=== PATIENT | male | born 1950 | race Caucasian/White ===

== ENCOUNTER 2020-06-26 13:30 | Inpatient (IN) | payer BC, OTHER ==
[~2020-06-26] VITALS: Ht 185.4 cm; Wt 87.0 kg
[2020-06-26 14:34] LABS: BASOPHILS % (AUTO) 0.5 % (0.0-5.0); EOSINOPHILS % (AUTO) 1.8 % (0.0-8.0); HEMATOCRIT 46.4 % (42-54); LYMPHOCYTES % (AUTO) 31.9 % (21.0-51.0); MEAN CORPUSCULAR HEMOGLOBIN 29.1 pg (27.0-33.0); MEAN CORPUSCULAR HGB CONC 33.6 g/dL (32.0-36.0); MEAN CORPUSCULAR VOLUME 86.6 fL (79-99); MONOCYTES % (AUTO) 8.9 % (3.0-13.0); NEUTROPHILS % (AUTO) 56.8 % (40.0-77.0); PLATELET COUNT (AUTO) 138 K/uL (130-400); RED BLOOD CELL COUNT(AUTO) 5.36 MIL/uL (4.50-6.20); WHITE BLOOD COUNT (AUTO) 7.9 K/uL (4.8-10.8)
[2020-06-26 14:49] LABS: HEMOGLOBIN A1C 7.3 % (4.0-6.0)
[2020-06-26 14:57] LABS: ALBUMIN 4.3 g/dL (3.5-5.0); B-TYPE NATRIURETIC PEPTIDE 15 pg/mL (0-100); BILIRUBIN,TOTAL 0.5 mg/dL (0.2-1.0); CREATININE 1.3 mg/dL (0.5-1.5); POTASSIUM 4.8 mmol/L (3.5-5.1); TOTAL PROTEIN, SERUM 8.2 g/dL (6.0-8.3)
[2020-06-26 14:58] LABS: INR 0.96 (0.85-1.15); PARTIAL THROMBOPLASTIN TIME 24.8 SEC (26.3-35.5); PROTHROMBIN TIME 10.4 SEC (9.6-11.6)
[2020-06-26 16:05] VITALS: BP 118/57
[2020-06-27] MEDS ORDERED: EMPA25TA PO (17:03)
[2020-06-27] MEDS ORDERED: METF-444 PO (17:03)
[2020-06-27] MEDS ORDERED: SERT100T12 PO (17:03)
[2020-06-27] MEDS ORDERED: METO-391 PO (17:03)
[2020-06-27] MEDS ORDERED: ASPI-1197 PO (17:03)
[2020-06-27] MEDS ORDERED: LEVO25TA9 PO (17:03)
[2020-06-27] MEDS ORDERED: ROSU20TA31 PO (17:03)
[2020-06-27] MEDS ORDERED: LOSA50TA64 PO (17:03)
[2020-06-27] MEDS ORDERED: GLIM4TAB36 PO (17:03)
[2020-06-27] MEDS ORDERED: PANT40GR PO (17:03)
[2020-06-28] VITALS (36 sets, daily range): BP systolic 76–157; BP diastolic 43–100
[2020-06-28] MEDS ORDERED: AMINOCAPROIC ACID 15,000 MG in SODIUM CHLORIDE 0.9% 500ML 420 ML IV PRN (06:15)
[2020-06-28] MEDS ORDERED: EPINEPHRINE 10 MG in SODIUM CHLORIDE 0.9% 240 ML IV PRN (06:15)
[2020-06-28] MEDS ORDERED: NOREPINEPHRINE BITARTRATE 8 MG in DEXTROSE 5%-WATER 250 ML IV PRN (06:15)
[2020-06-28] MEDS ORDERED: CLINDAMYCIN PHOSPHATE 150 MG/ML 6ML VIAL ONE (07:15)
[2020-06-28] MEDS ORDERED: PAPAVERINE HCL 30 MG/ML 2ML VIAL ONE (07:15)
[2020-06-28] MEDS ORDERED: SODIUM CHLORIDE 0.9% 1000ML 1,000 ML IV ONE (07:32)
[2020-06-28] MEDS ORDERED: NITROGLYCERIN 50 MG/D5% WATER 1 BOT ONE (07:42)
[2020-06-28] MEDS ORDERED: EPINEPHRINE 1 MG/ML AMPULE ONE (07:44)
[2020-06-28] MEDS ORDERED: NOREPINEPHRINE BITARTRATE 1 MG/1 ML ML IV ONE ×2 (07:44→10:10)
[2020-06-28] MEDS ORDERED: AMINOCAPROIC ACID 250 MG/ML 20 ML VIAL ONE (07:44)
[2020-06-28] MEDS ORDERED: LIDOCAINE PF 2% 5ML ABBOJECT ONE (07:44)
[2020-06-28] MEDS ORDERED: ESMOLOL HCL 10 MG/ML 10 ML VIAL ONE (07:44)
[2020-06-28] MEDS ORDERED: PROTAMINE SULFATE 10 MG/ML 25ML VIAL IV ONE (07:44)
[2020-06-28] MEDS ORDERED: HEPARIN SODIUM 1000UNIT/ML 10ML VIAL ONE ×2 (07:44→09:56)
[2020-06-28] MEDS ORDERED: PROPOFOL 10 MG/ML 20ML VIAL IV ONE (07:45)
[2020-06-28] MEDS ORDERED: FENTANYL CITRATE PF 50 MCG/1 ML 20ML VIAL IJ ONE (07:45)
[2020-06-28] MEDS ORDERED: MIDAZOLAM HCL 1 MG/ML 2ML VIAL ONE (07:46)
[2020-06-28] MEDS ORDERED: KETAMINE 50MG/ML SYRINGE 50 MG/ML DISP.SYRIN IV ONE (07:47)
[2020-06-28] MEDS ORDERED: ROCURONIUM BROMIDE 10MG/1ML 5ML VL ONE (07:50)
[2020-06-28] MEDS ORDERED: CLINDAMYCIN 900 MG/D5% WATER 50 ML IV ONE (07:56)
[2020-06-28] MEDS ORDERED: DELNIDO FORMULA 1 BAG IV ONE (07:59)
[2020-06-28] MEDS ORDERED: CEFAZOLIN SODIUM 1 GM VIAL IVP ONE (08:00)
[2020-06-28 09:11] LABS: ABG BASE EXCESS -6.4 mmol/L (-2.0-3.0); ABG HCO3 21.3 mmol/L (21.0-28.0); ABG OXYGEN SATURATION 98.9 % (95.0-99.0); ABG PCO2 50 mmHg (35-48)
[2020-06-28 09:54] LABS: ABG BASE EXCESS -6.4 mmol/L (-2.0-3.0); ABG HCO3 20.9 mmol/L (21.0-28.0); ABG OXYGEN SATURATION 99.1 % (95.0-99.0); ABG PCO2 48 mmHg (35-48)
[2020-06-28] MEDS ORDERED: SODIUM BICARB 50MEQ 50ML VIAL 100 ML ONE (10:08)
[2020-06-28 10:34] LABS: ABG HCO3 21.1 mmol/L (21.0-28.0); ABG OXYGEN SATURATION 98.3 % (95.0-99.0); ABG PCO2 39 mmHg (35-48)
[2020-06-28 11:11] LABS: ABG BASE EXCESS -3.3 mmol/L (-2.0-3.0); ABG HCO3 21.8 mmol/L (21.0-28.0); ABG PCO2 40 mmHg (35-48)
[2020-06-28] MEDS ORDERED: MORPHINE SULFATE 2 MG/ML 1ML SYG IV PRN (11:15)
[2020-06-28] MEDS ORDERED: POTASSIUM PHOS 15 mMOL+NS250ML 250 ML IV PRN (11:15)
[2020-06-28] MEDS ORDERED: ACETAMINOPHEN 650 MG SUPPOSITORY RC PRN (11:15)
[2020-06-28] MEDS ORDERED: AMINOCAPROIC ACID 15,000 MG in SODIUM CHLORIDE 0.9% 250 ML IV SCH (11:15)
[2020-06-28] MEDS ORDERED: ONDANSETRON HCL 4 MG/2 ML VIAL IV PRN (11:15)
[2020-06-28] MEDS ORDERED: NOREPINEPHRINE 4MG/NS 250ML 250 ML IV PRN (11:15)
[2020-06-28] MEDS ORDERED: MAGNESIUM 2GM PREMIX 50ML 50 ML IV PRN (11:15)
[2020-06-28] MEDS ORDERED: GLUCAGON 1MG KIT 1 MG ML IM PRN (11:15)
[2020-06-28] MEDS ORDERED: DEXTROSE 50%-WATER 50 ML DISP.SYRIN IV PRN (11:15)
[2020-06-28] MEDS ORDERED: ALBUMIN (HUMAN) 5% 250 ML IV PRN (11:15)
[2020-06-28] MEDS ORDERED: SODIUM BICARB 50MEQ 50ML VIAL IV PRN (11:15)
[2020-06-28] MEDS ORDERED: PROPOFOL 1000 MG/100 ML 100 ML IV PRN (11:15)
[2020-06-28] MEDS ORDERED: EPINEPHRINE 2 MG in DEXTROSE 5%-WATER 250 ML IV PRN (11:15)
[2020-06-28] MEDS ORDERED: SODIUM CHLORIDE 0.9% 500ML 500 ML IV SCH (11:15)
[2020-06-28] MEDS ORDERED: SODIUM CHLORIDE 0.9% 1000ML 1,000 ML IV SCH (11:15)
[2020-06-28] MEDS ORDERED: SODIUM CHLORIDE 0.9% 10 ML VIAL IVP PRN (11:15)
[2020-06-28] MEDS ORDERED: MORPHINE SULFATE 4 MG/1ML SYG IV PRN (11:15)
[2020-06-28] MEDS ORDERED: NITROGLYCERIN 50 MG/D5% WATER 250 BOT IV SCH (11:15)
[2020-06-28] MEDS ORDERED: AMIODARONE HCL 50 MG/ML 3 ML VIAL ONE (11:22)
[2020-06-28 11:53] LABS: ABG BASE EXCESS -4.3 mmol/L (-2.0-3.0); ABG OXYGEN SATURATION 98.2 % (95.0-99.0); ABG PCO2 46 mmHg (35-48)
--- NOTE | 2020-06-28 12:19 | NUR ---
POST OP Received pt immediately post op. Intubated/sedated. Not responsive to stimulation. SR on tele with strong apical heart tones. Vent settings as recorded. Received pt on IV levophed @ 10cmg/min, epinephrine gtt @ 0.03mcg/kg/min, amicar @50ml/hr. Insulin gtt initiated per protocol. Right IJ CV line in use. Left radial arterial line patent with acceptable waveform. CT's x2 patent. Epicardial wires taped securely to chest wall. Sternal drsg is clean and dry. RICHA bandages/surgical drsgs to BLE's clean and dry. Assessment completed/recorded.
--- NOTE | 2020-06-28 12:44 | NUR ---
NOTIFICATION Spoke to by phone - aware of pt status/location.
--- NOTE | 2020-06-28 12:47 | NUR ---
DR.KOTTA Paez's office contacted - voice message left on answering machine regarding pt's admission/location. Pending return call.
[2020-06-28 12:54] LABS: HEMATOCRIT 35.8 % (42-54); MEAN CORPUSCULAR HEMOGLOBIN 29.3 pg (27.0-33.0); MEAN CORPUSCULAR HGB CONC 33.5 g/dL (32.0-36.0); MEAN CORPUSCULAR VOLUME 87.3 fL (79-99); RED BLOOD CELL COUNT(AUTO) 4.1 MIL/uL (4.50-6.20); WHITE BLOOD COUNT (AUTO) 20.9 K/uL (4.8-10.8)
[2020-06-28 13:07] LABS: CREATININE 1.2 mg/dL (0.5-1.5); INR 1.16 (0.85-1.15); MAGNESIUM 2.8 mg/dL (1.80-2.40); PARTIAL THROMBOPLASTIN TIME 23.1 SEC (26.3-35.5); PHOSPHORUS 6.1 mg/dL (2.5-4.9); POTASSIUM 4.9 mmol/L (3.5-5.1); PROTHROMBIN TIME 12.5 SEC (9.6-11.6)
--- NOTE | 2020-06-28 13:19 | NUR ---
FAMILY UPDATE Pt's spouse in to see pt briefly - updated. Discussed routine post op plan of care. Questions addressed. ICU phone number provided.
--- NOTE | 2020-06-28 13:41 | NUR ---
MD VISIT in to see pt - briefly updated.
[2020-06-28 13:45] LABS: ABG BASE EXCESS -1.9 mmol/L (-2.0-3.0); ABG HCO3 25.7 mmol/L (21.0-28.0); ABG OXYGEN SATURATION 96.6 % (95.0-99.0); ABG PCO2 55 mmHg (35-48)
[2020-06-28] MEDS: INSULIN REGULAR, HUMAN 3ML 100 UNIT in SODIUM CHLORIDE 0.9% 99 ML IV SCH ×2 (14:05)
--- NOTE | 2020-06-28 14:54 | NUR ---
STATUS Spontaneous eye opening - focuses on caregiver but not yet following commands. Attempts made to reorient/reassure pt. Pt does not maintain adequate level of arousal.
--- NOTE | 2020-06-28 15:09 | NUR ---
STATUS Spontaneous eye opening. Focuses and follows commands. Reoriented and reassured. Pt is in no acute distress. Equal movement x4 extremities.
[2020-06-28] MEDS ORDERED: ALBUMIN (HUMAN) 5% 250 ML IV ONE ×3 (15:35→19:31)
--- NOTE | 2020-06-28 15:38 | NUR ---
PT CARE 5% albumin 250ml administered for hemodynamic support.
[2020-06-28] MEDS ORDERED: ALBUMIN (HUMAN) 5% 250 ML IV SCH (16:30)
--- NOTE | 2020-06-28 16:43 | NUR ---
STATUS Drowsy but arousable. Is in no acute distress. Does not maintain adequate level of arousal. Pt reassured.
[2020-06-28 17:31] LABS: ABG BASE EXCESS 0.3 mmol/L (-2.0-3.0); ABG HCO3 25.5 mmol/L (21.0-28.0); ABG OXYGEN SATURATION 96.4 % (95.0-99.0); ABG PCO2 44 mmHg (35-48)
[2020-06-28] MEDS: POTASSIUM CHLORIDE 20MEQ/100ML 100 ML IV PRN ×2 (17:35→20:49)
[2020-06-28] MEDS ORDERED: PHARMACY COMMUNICATION MISC SCH ×4 (18:15→21:00)
[2020-06-28] MEDS ORDERED: MANNITOL 25% 50ML VIAL IV ONE (18:40)
[2020-06-28] MEDS ORDERED: CALCIUM CHLORIDE 100 MG/ML 10 ML SYG IVP ONE (18:40)
[2020-06-28] MEDS ORDERED: HEPARIN SODIUM 1000UNIT/ML 10ML VIAL IV ONE (18:40)
[2020-06-28] MEDS ORDERED: SODIUM BICARB 8.4% 50ML SYRINGE IVP ONE (18:40)
[2020-06-28] MEDS ORDERED: MAGNESIUM SULFATE 1 GM/2 ML VIAL IM ONE (18:40)
[2020-06-28] MEDS ORDERED: AMINOCAPROIC ACID 250 MG/ML 20 ML VIAL IV ONE (18:40)
[2020-06-28] MEDS ORDERED: PHENYLEPHRINE HCL 10 MG/ML 1ML VIAL IV ONE (18:40)
[2020-06-28] MEDS ORDERED: ALBUMIN (HUMAN) 25% 50 ML IV ONE (18:40)
--- NOTE | 2020-06-28 18:59 | NUR ---
EXTUBATION Extubated to 40% aerosol mask. Care of pt endorsed to 7P RN.
[2020-06-28] MEDS: CLINDAMYCIN 900 MG/D5% WATER 50 ML IV SCH (19:03)
[2020-06-28] MEDS ORDERED: EPINEPHRINE 10 MG in DEXTROSE 5%-WATER 250 ML IV PRN (19:30)
[2020-06-28] MEDS ORDERED: NOREPINEPHRINE BITARTRATE 8 MG in SODIUM CHLORIDE 0.9% 250 ML IV PRN (19:30)
[2020-06-28] MEDS: CALCIUM GLUCONATE 1 GM in SODIUM CHLORIDE 0.9% 50 ML IV PRN ×2 (20:13→21:58)
[2020-06-28 20:22] LABS: ABG BASE EXCESS 1.7 mmol/L (-2.0-3.0); ABG OXYGEN SATURATION 95.6 % (95.0-99.0); ABG PCO2 45 mmHg (35-48)
[2020-06-28] MEDS: ACETAMINOPHEN 325 MG TAB PO PRN (20:46)
[2020-06-28] MEDS ORDERED: FAMOTIDINE/PF 20 MG/2 ML VIAL IV SCH (21:00)
[2020-06-29] VITALS (26 sets, daily range): BP systolic 99–149; BP diastolic 42–66
[2020-06-29] MEDS: ACETAMINOPHEN 325 MG TAB PO PRN ×2 (01:02→20:21)
[2020-06-29] MEDS: CLINDAMYCIN 900 MG/D5% WATER 50 ML IV SCH ×2 (03:08→12:31)
[2020-06-29] MEDS: TRAMADOL HCL 50 MG TABLET PO PRN ×3 (03:19→16:58)
[2020-06-29 04:35] LABS: HEMATOCRIT 29.1 % (42-54); MEAN CORPUSCULAR HEMOGLOBIN 29.3 pg (27.0-33.0); MEAN CORPUSCULAR HGB CONC 33.7 g/dL (32.0-36.0); MEAN CORPUSCULAR VOLUME 87.1 fL (79-99); RED BLOOD CELL COUNT(AUTO) 3.34 MIL/uL (4.50-6.20); RED CELL DISTRIBUTION WIDTH 13.5 % (11.0-15.5)
[2020-06-29 04:48] LABS: CREATININE 1.2 mg/dL (0.5-1.5); INR 1.05 (0.85-1.15); PARTIAL THROMBOPLASTIN TIME 22.6 SEC (26.3-35.5); PHOSPHORUS 3.4 mg/dL (2.5-4.9); POTASSIUM 3.7 mmol/L (3.5-5.1); PROTHROMBIN TIME 11.3 SEC (9.6-11.6)
[2020-06-29] MEDS: POTASSIUM CHLORIDE 20MEQ/100ML 100 ML IV PRN (05:20)
[2020-06-29] MEDS: CALCIUM GLUCONATE 1 GM in SODIUM CHLORIDE 0.9% 50 ML IV PRN (05:29)
[2020-06-29] MEDS: INSULIN REGULAR, HUMAN 3ML 100 UNIT in SODIUM CHLORIDE 0.9% 99 ML IV SCH ×2 (08:29)
[2020-06-29] MEDS: FAMOTIDINE 20MG TAB 20 MG TAB PO SCH ×2 (10:52→20:20)
--- NOTE | 2020-06-29 14:49 | NUR ---
DC PLAN PATIENT ON 4L TEMP 100.9 CM WILL CONTINUE TO FOLLOW. Addendum: 06/29/20 at 1450 by JEREMY HUGHES RN CM Amended: Links added.
[2020-06-29] MEDS: ATORVASTATIN CALCIUM 40 MG TABLET PO SCH (20:21)
[2020-06-29] MEDS: FUROSEMIDE 20 MG TABLET PO SCH (20:21)
[2020-06-30] VITALS (24 sets, daily range): BP systolic 107–189; BP diastolic 42–90
[2020-06-30] MEDS: TRAMADOL HCL 50 MG TABLET PO PRN ×4 (00:03→18:38)
[2020-06-30] MEDS: ACETAMINOPHEN 325 MG TAB PO PRN (03:10)
[2020-06-30 04:32] LABS: HEMATOCRIT 23.2 % (42-54); MEAN CORPUSCULAR HEMOGLOBIN 29.6 pg (27.0-33.0); MEAN CORPUSCULAR HGB CONC 34.1 g/dL (32.0-36.0); MEAN CORPUSCULAR VOLUME 86.9 fL (79-99); RED BLOOD CELL COUNT(AUTO) 2.67 MIL/uL (4.50-6.20); RED CELL DISTRIBUTION WIDTH 13.5 % (11.0-15.5); WHITE BLOOD COUNT (AUTO) 11.1 K/uL (4.8-10.8)
[2020-06-30 04:53] LABS: POTASSIUM 3.3 mmol/L (3.5-5.1)
[2020-06-30] MEDS: FUROSEMIDE 20 MG TABLET PO SCH ×3 (04:57→20:15)
[2020-06-30] MEDS: POTASSIUM CHLORIDE 20MEQ/100ML 100 ML IV PRN ×2 (04:59→09:45)
[2020-06-30] MEDS: FAMOTIDINE 20MG TAB 20 MG TAB PO SCH ×2 (08:56→20:15)
[2020-06-30] MEDS ORDERED: ASPIRIN 81 MG EC TAB PO SCH (09:00)
[2020-06-30] MEDS: METOPROLOL TARTRATE 25 MG TAB PO SCH ×2 (09:01→20:15)
--- NOTE | 2020-06-30 12:14 | NUR ---
DC PLAN SPOKE TO PATIENT. PATIENT LIVES WITH SPOUSE. INDEPENDENT ABLE TO PERFORM ADL'S. PATIENT HAS NO SERVICES OR DME'S. NOT SURE IF WILL NEED PT REHAB. WILL WAIT FOR PT EVAL. Addendum: 06/30/20 at 1215 by JEREMY HUGHES RN CM Amended: Links added.
[2020-06-30] MEDS: ATORVASTATIN CALCIUM 40 MG TABLET PO SCH (20:15)
--- NOTE | 2020-06-30 23:30 | NUR ---
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 Pt kept on O2 at 2L/NC O2 sat at 92%. Pt encourage & did his IS, made aware at least do it every hour while awake, stated he will try. Re-explain the importance of IS to prevent complication. Reported FC was d/c earlier today & pt has been voiding adequately.
[2020-07-01] VITALS: BP 153/58
[2020-07-01 04:00] VITALS: BP 148/78
[2020-07-01] MEDS: FUROSEMIDE 20 MG TABLET PO SCH ×3 (06:00→20:09)
--- NOTE | 2020-07-01 06:24 | NUR ---
MD Rounds Dr. aHrris in, updated with pt's status, with orders carried out.
[2020-07-01] MEDS ORDERED: LACTULOSE 20 GM/30 ML UDCUP ONE (06:27)
[2020-07-01] MEDS ORDERED: POTASSIUM CHLORIDE 20MEQ/100ML 100 ML IV PRN (06:30)
[2020-07-01] MEDS ORDERED: LACTULOSE 20 GM/30 ML UDCUP PO PRN (06:30)
[2020-07-01] MEDS ORDERED: LIDOCAINE HCL-MPF 1% 2ML VIAL IV PRN (06:30)
[2020-07-01] MEDS: TRAMADOL HCL 50 MG TABLET PO PRN ×2 (06:35→10:33)
[2020-07-01 06:53] LABS: HEMATOCRIT 25.1 % (42-54); MEAN CORPUSCULAR HEMOGLOBIN 29.4 pg (27.0-33.0); MEAN CORPUSCULAR HGB CONC 33.1 g/dL (32.0-36.0); PLATELET COUNT (AUTO) 58 K/uL (130-400); RED BLOOD CELL COUNT(AUTO) 2.82 MIL/uL (4.50-6.20); RED CELL DISTRIBUTION WIDTH 13.4 % (11.0-15.5); WHITE BLOOD COUNT (AUTO) 11.2 K/uL (4.8-10.8)
--- NOTE | 2020-07-01 07:40 | NUR ---
ASSESSMENT ENCOUNTERED PT A&OX3, CALM COOPERATIVE AND DOES NOT APPEAR TO BE IN ANY DISTRESS NOR ANY NEURO DEFICITS PRESENT. PT DENIES PAIN, SOB, NAUSEA. STERNAL AND CHEST TUBE INCISION SITES DRY AND INTACT. INCENTIVE SPIROMETER AVERAGING 1500ML PER ATTEMPT. PT IS AMBULATORY, GAIT SLOW BUT STEADY WITH 1-2 PERSON ASSIST. CALL LIGHT WITHIN REACH.
[2020-07-01 08:09] VITALS: BP 144/71
[2020-07-01] MEDS: FAMOTIDINE 20MG TAB 20 MG TAB PO SCH ×2 (10:31→20:09)
[2020-07-01] MEDS: METOPROLOL TARTRATE 25 MG TAB PO SCH ×2 (10:34→20:09)
[2020-07-01] MEDS: POTASSIUM CHLORIDE 20 MEQ ERTAB PO PRN (11:48)
[2020-07-01] MEDS: POTASSIUM CHLORIDE 10% ELIXIR 20 MEQ/15 ML UDCUP PO PRN ×3 (11:50→15:51)
[2020-07-01 12:00] VITALS: BP 125/64
[2020-07-01] MEDS: INSULIN HUMULIN R 100 UNIT/ML 3ML SQ SCH ×3 (13:24→20:32)
[2020-07-01 16:12] VITALS: BP 129/83
[2020-07-01] MEDS: ATORVASTATIN CALCIUM 40 MG TABLET PO SCH (20:09)
[2020-07-01 20:40] VITALS: BP 146/66
[2020-07-02 00:07] VITALS: BP 145/75
[2020-07-02] MEDS: TRAMADOL HCL 50 MG TABLET PO PRN ×2 (01:12→07:10)
[2020-07-02 04:29] VITALS: BP 136/71
[2020-07-02] MEDS: FUROSEMIDE 20 MG TABLET PO SCH ×2 (05:05→16:24)
--- NOTE | 2020-07-02 05:21 | NUR ---
Rounds Dr. Harris in, spoke with the pt & gave order pt ok for d/c, to follow up with him in 2 weeks, d/c medications c/o attending on this case.
[2020-07-02] MEDS: INSULIN HUMULIN R 100 UNIT/ML 3ML SQ SCH ×2 (05:47→12:21)
[2020-07-02 05:48] LABS: HEMATOCRIT 26.1 % (42-54); MEAN CORPUSCULAR HEMOGLOBIN 29.6 pg (27.0-33.0); MEAN CORPUSCULAR HGB CONC 33.3 g/dL (32.0-36.0); MEAN CORPUSCULAR VOLUME 88.8 fL (79-99); NUCLEATED RED BLOOD CELLS 0.2 % (0.0-0.19); RED BLOOD CELL COUNT(AUTO) 2.94 MIL/uL (4.50-6.20); RED CELL DISTRIBUTION WIDTH 13.2 % (11.0-15.5); WHITE BLOOD COUNT (AUTO) 13.2 K/uL (4.8-10.8)
[2020-07-02 06:36] LABS: POTASSIUM 2.9 mmol/L (3.5-5.1)
[2020-07-02] MEDS: POTASSIUM CHLORIDE 20MEQ/100ML 100 ML IV PRN (07:07)
[2020-07-02] MEDS: POTASSIUM CHLORIDE 10% ELIXIR 20 MEQ/15 ML UDCUP PO PRN ×4 (07:09→16:18)
[2020-07-02 08:00] VITALS: BP 148/68
[2020-07-02] MEDS: METOPROLOL TARTRATE 25 MG TAB PO SCH (08:59)
[2020-07-02] MEDS: FAMOTIDINE 20MG TAB 20 MG TAB PO SCH (08:59)
[2020-07-02] MEDS: POTASSIUM CHLORIDE 20 MEQ ERTAB PO PRN (08:59)
[2020-07-02 11:00] VITALS: BP 119/58
[2020-07-02 16:00] VITALS: BP 139/76
== END 2020-07-02 18:41 | disposition home or self-care (01) | DRG 221 ==
LOC: EDSTATUS 13:30 → DAHIP 06-28 05:52 → 2CH 06-28 10:34 → 4DH 06-30 23:45
PROVIDERS: ADMIT Thoracic Surgery (Cardiothoracic Vascular Surgery); ATTEND Thoracic Surgery (Cardiothoracic Vascular Surgery)
PROC: 5A1221Z Performance of Cardiac Output, Continuous (ICD-10-PCS; 2020-06-28)
PROC: B24BZZ4 Ultrasonography of Heart with Aorta, Transesophageal (ICD-10-PCS; 2020-06-28)
PROC: 02100Z9 Bypass Coronary Artery, One Artery from Left Internal Mammary, Open Approach (ICD-10-PCS; principal; 2020-06-28 07:53)
PROC: 02RF08Z Replacement of Aortic Valve with Zooplastic Tissue, Open Approach (ICD-10-PCS; 2020-06-28 07:53)
PROC: 021109W Bypass Coronary Artery, Two Arteries from Aorta with Autologous Venous Tissue, Open Approach (ICD-10-PCS; 2020-06-28 07:53)
PROC: 06BQ4ZZ Excision of Left Saphenous Vein, Percutaneous Endoscopic Approach (ICD-10-PCS; 2020-06-28 07:53)
DX: I25.110 Atherosclerotic heart disease of native coronary artery with unstable angina pectoris (principal); I35.2 Nonrheumatic aortic (valve) stenosis with insufficiency; J44.9 Chronic obstructive pulmonary disease, unspecified; D64.9 Anemia, unspecified; D69.6 Thrombocytopenia, unspecified; E11.9 Type 2 diabetes mellitus without complications; E78.00 Pure hypercholesterolemia, unspecified; E87.70 Fluid overload, unspecified; I10 Essential (primary) hypertension; Z79.899 Other long term (current) drug therapy; Z20.828 Contact with and (suspected) exposure to other viral communicable diseases; Z88.0 Allergy status to penicillin; Z88.8 Allergy status to other drugs, medicaments and biological substances; E78.5 Hyperlipidemia, unspecified; Z83.3 Family history of diabetes mellitus; Z82.49 Family history of ischemic heart disease and other diseases of the circulatory system
CPT/HCPCS: 36415; 71045; 71046; 80048; 80053; 80061; 82330; 82435; 82803; 82947; 82948; 83036; 83605; 83735; 83880; 84100; 84132; 84295; 85018; 85025; 85027; 85347; 85610; 85730; 86850; 86900; 86901; 86922; 87426; 93005; 93313; 93318; 93880; 94002; 94010; 94150; 97039; A4606; A7048; C1763; G0378; J0171; J0282; J0610; J0690; J1644; J1815; J2001; J2150; J2250; J2370; J2440; J2704; J2720; J3010; J3475; J3480; J3490; J7030; J7040; J7120; P9045; P9047; U0003

== ENCOUNTER 2020-07-20 17:49 | Emergency (ER) | payer OTHER, MEDICARE ==
[~2020-07-20 17:49] MED LIST: ASPI-1197 PO; EMPA25TA PO; GLIM4TAB36 PO; LEVO25TA9 PO; METF-444 PO; PANT40GR PO; ROSU20TA31 PO; SERT100T12 PO
== END 2020-07-20 21:03 | disposition left against medical advice (07) ==
LOC: EDH 17:49
DX: R22.42 Localized swelling, mass and lump, left lower limb (principal); E11.9 Type 2 diabetes mellitus without complications; E78.00 Pure hypercholesterolemia, unspecified; I10 Essential (primary) hypertension; Z87.891 Personal history of nicotine dependence; Z88.0 Allergy status to penicillin; Z88.1 Allergy status to other antibiotic agents; Z53.21 Procedure and treatment not carried out due to patient leaving prior to being seen by health care provider